=== PATIENT | female | born 1980 | race Caucasian/White ===

== ENCOUNTER 2021-01-03 08:46 | Emergency (ER) | payer OTHER ==
[~2021-01-03] VITALS: Ht 170.2 cm; Wt 103.9 kg
[2021-01-03 08:47] VITALS: BP 132/91
--- NOTE | 2021-01-03 11:54 | REP ---
INDICATION: left frontal trauma COMPARISON: None. TECHNIQUE: Axial noncontrast images from the skull base to the vertex with coronal reformations. This CT examination was performed using the following dose reduction techniques: Automated exposure control, adjustment of mA and/or kv according to the patient's size, and use of iterative reconstruction technique. FINDINGS: The ventricles, sulci, and cisterns are normal in position and appearance. Sofia-white differentiation is maintained. No acute intracranial hemorrhage, mass/mass effect, pathology or trauma/injury. No evidence for acute infarction. No extra-axial fluid collection. Calvarium is intact. Paranasal sinuses and mastoid air cells are clear. IMPRESSION: Normal noncontrast head CT. No evidence for acute intracranial pathology or trauma/injury. <Electronically signed by David Polanco > 01/03/21 0346
== END 2021-01-03 12:05 | disposition home or self-care (01) ==
LOC: M ED 08:46
DX: S06.0X0A Concussion without loss of consciousness, initial encounter (principal); W54.8XXA Other contact with dog, initial encounter; Y92.009 Unspecified place in unspecified non-institutional (private) residence as the place of occurrence of the external cause; Y93.9 Activity, unspecified; Y99.9 Unspecified external cause status

== ENCOUNTER → 2021-09-22 | Outpatient (CLI) | payer OTHER ==
[~2021-09-22] MED LIST: **SFHN** LIDOCAINE 1% MDV 20ML VIAL ONE; **SFHN** SODIUM BICARBONATE 8.4% 50MEQ 50ML VIAL ONE; CLAR5TAB11 PO
[2021-09-22 13:26] VITALS: BP 136/86
== END ==
LOC: M WHCPRO 12:06
PROVIDERS: ATTEND Surgery
DX: N64.89 Other specified disorders of breast (principal)
CPT/HCPCS: 10035; 77065; A4648

== ENCOUNTER → 2021-09-29 | Outpatient (CLI) | payer OTHER ==
[~2021-09-29] MED LIST changes: -**SFHN** LIDOCAINE 1% MDV 20ML VIAL ONE; -**SFHN** SODIUM BICARBONATE 8.4% 50MEQ 50ML VIAL ONE
== END ==
LOC: M WHC 14:58
PROVIDERS: ATTEND Surgery
DX: N64.89 Other specified disorders of breast (principal); Z98.890 Other specified postprocedural states

== ENCOUNTER → 2021-10-13 | Outpatient (CLI) | payer OTHER ==
[~2021-10-13] MED LIST changes: +FERR325T81 PO; +FLON1SPR
== END ==
LOC: M LABSMTC 09:43
PROVIDERS: ATTEND Anesthesiology
DX: Z01.818 Encounter for other preprocedural examination (principal); Z11.52 Encounter for screening for COVID-19

== ENCOUNTER 2021-10-18 06:34 | Day surgery (SDC) | payer OTHER ==
[~2021-10-18] VITALS: Ht 170.2 cm; Wt 99.8 kg
[~2021-10-18 06:34] MED LIST changes: +HEPARIN SOD (PORCINE) 5000UNITS/ML 1ML VIAL/SYRINGE SQ ONE; +NS 1,000 ML IV ONE; +ceFAZolin SOD 2 GM in IV 1 EA IV ONE
[2021-10-18] MEDS ORDERED: LR 1,000 ML IV SCH ×2 (06:50→12:15)
[2021-10-18] MEDS ORDERED: LIDOCAINE 1% SDV 30ML VIAL As Ordered ONE (07:18)
[2021-10-18] MEDS ORDERED: BUPIVACAINE HCL 0.25% 30ML VIAL As Ordered ONE (07:19)
[2021-10-18] MEDS ORDERED: LIDOCAINE 1% MDV 20ML VIAL As Ordered ONE (08:52)
[2021-10-18] MEDS ORDERED: SCOPOLAMINE 1MG TRANSDERMAL PATCH TOP ONE (09:40)
[2021-10-18] MEDS ORDERED: BUPIVACAINE LIPOSOME/PF 1.3% 20ML VIAL (13.3MG/ML)(EXPAREL) As Ordered ONE (09:43)
[2021-10-18] MEDS ORDERED: BUPIVACAINE HCL 0.25% 10ML VIAL As Ordered ONE (09:43)
[2021-10-18] MEDS ORDERED: MIDAZOLAM INJ 2MG/2ML VIAL (J2250 PER 1MG) As Ordered ONE (10:24)
[2021-10-18] MEDS ORDERED: LIDOCAINE 2% 100MG/5ML SDV (FOR ANES.) As Ordered ONE (10:24)
[2021-10-18] MEDS ORDERED: ONDANSETRON 4MG/2ML VIAL As Ordered ONE (10:24)
[2021-10-18] MEDS ORDERED: ACETAMINOPHEN 1000MG 100ML IV BTL (OFIRMEV) (J0131 PER 10MG) As Ordered ONE (10:24)
[2021-10-18] MEDS ORDERED: ROCURONIUM BROMIDE 50 MG/5 ML VIAL As Ordered ONE (10:24)
[2021-10-18] MEDS ORDERED: fentaNYL 100 MCG/2 ML INJECTION As Ordered ONE ×2 (10:24→10:27)
[2021-10-18] MEDS ORDERED: SUGAMMADEX SODIUM 500 MG/5 ML VIAL (BRIDION) As Ordered ONE (10:24)
[2021-10-18] MEDS ORDERED: propofoL 200 MG/20 ML VIAL As Ordered ONE (10:24)
[2021-10-18] MEDS ORDERED: METOCLOPRAMIDE INJ 10MG/2ML VIAL (J2765 PER 1) As Ordered ONE (10:24)
[2021-10-18] MEDS ORDERED: dexameTHASONE 4 MG/ML 1ML VIAL (J1100 PER 1MG) As Ordered ONE (10:24)
[2021-10-18] MEDS ORDERED: PHENYLephrine 500MCG 5ML (100MCG/ML) SYRINGE As Ordered ONE (10:35)
[2021-10-18] MEDS ORDERED: ONDANSETRON 4MG/2ML VIAL IV PRN (12:15)
[2021-10-18] MEDS ORDERED: oxyCODONE 5MG TAB PO PRN (12:15)
[2021-10-18] MEDS ORDERED: fentaNYL 100 MCG/2 ML INJECTION IV PRN (12:15)
[2021-10-18 13:35] VITALS: BP 141/87
== END 2021-10-18 14:09 | disposition home or self-care (01) ==
LOC: M SDC 06:34
PROVIDERS: ATTEND Surgery
DX: N64.89 Other specified disorders of breast (principal); L90.5 Scar conditions and fibrosis of skin; Z79.899 Other long term (current) drug therapy; F19.11 Other psychoactive substance abuse, in remission
CPT/HCPCS: 19125; 36415; 76942; 81025; 86850; 86900; 86901; 88307; C9290; J0131; J0690; J1100; J1644; J2250; J2370; J2405; J2765; J3010